=== PATIENT | male | born 2000 | race Caucasian/White ===

== ENCOUNTER 2023-02-05 13:32 | Emergency (ER) | payer OTHER ==
[~2023-02-05] VITALS: Ht 165.1 cm; Wt 65.8 kg
[~2023-02-05 13:32] MED LIST: Bactrim Ds Tab1 EACH PO; CEPH500 PO; FLUT44OIA IH; IBUP400 PO; Keflex500 MG PO; LEVA.63IS IH; METPHE18ER PO; MONT4 PO; OMEP20ER PO; ONDA4 PO; PREDNISONE
[2023-02-05 14:07] VITALS: BP 139/86
== END 2023-02-05 18:12 | disposition home or self-care (01) ==
LOC: ER 13:32
DX: S51.812A Laceration without foreign body of left forearm, initial encounter (principal); V28.49XA Other motorcycle driver injured in noncollision transport accident in traffic accident, initial encounter; J45.909 Unspecified asthma, uncomplicated; Z79.899 Other long term (current) drug therapy
CPT/HCPCS: 12002; 36415; 96372-59; 99284-25; J1885

== ENCOUNTER 2023-02-20 04:07 | Emergency (ER) | payer OTHER ==
[~2023-02-20] VITALS: Ht 165.1 cm; Wt 63.5 kg
[2023-02-20 04:17] VITALS: BP 151/89
== END 2023-02-20 04:53 | disposition home or self-care (01) ==
LOC: ER 04:07
DX: S00.31XA Abrasion of nose, initial encounter (principal); V29.99XA Rider (driver) (passenger) of other motorcycle injured in unspecified traffic accident, initial encounter; Z23 Encounter for immunization
CPT/HCPCS: 90715; 99282; A9270